=== PATIENT | male | born 1980 | race Caucasian/White ===

== ENCOUNTER 2019-01-08 14:11 | Emergency (ER) | payer BC, SELFPAY ==
[2019-01-08 14:17] VITALS: BP 126/86; PULSE 94; RESP 16; TEMP 36.4; O2SAT 96
--- NOTE | 2019-01-08 15:09 | DI.CT_ITS ---
EXAM: CT FACIAL WO CLINICAL HISTORY: lac to chin, r/o jaw fx/dislocation TECHNIQUE: WO COMPARISON: No exams were available for comparison FINDINGS: There is no evidence of a facial fracture. There is mucosal thickening seen in both maxillary sinuses. A large mucous retention cyst or polyp i n the left maxillary sinus. The remaining visualized paranasal sinuses are clear as are the mastoid air cells. The orbits and retro-orbital soft tissues are unremarkable. IMPRESSION: No evidence of a facial fracture. The findings were discussed with the Emergency Department on the date of the examination.
--- NOTE | 2019-01-08 15:10 | W.ED.GENAD ---
Discharge Plan Disposition Patient Disposition: HOME Condition: Stable Discharge Details Chief Complaint: Laceration Clinical Impression: Chin laceration, Contusion of jaw Primary Care Provider: None,None ED Provider: Erika Bailey Home Meds and New Rx's Prescriptions: No Action No Known Home Meds RF: 0 Discharge Instructions Instructions: Laceration (ED), Contusion in Adults (ED) Additional Instructions: Keep wound clean and dry. You can apply topical antibiotic ointment if you notice any signs of redness, swelling or pain. Wear a Band-Aid or bandage at night while sleeping or if risk of contamination. Otherwise keep the wound open to air to allow the edges to dry and heal. Return to the emergency department in 5 to 7 days for suture removal. Discharge Data Discharge Date/Time-TO BE ENTERED AT DEPARTURE: 01/08/19 17:30 Discharge Physician: Erika Bailey Medical Decision Making 1425 -- 38-year-old male presents with chin injury after slipped on snow and hit a steel bar with his chin prior to arrival. No LOC, vomiting, headache, blurry vision. There is a 2 cm laceration just below the left side of his chin. There is no active bleeding, obvious foreign body or deformity. Patient states he feels he is not able to line up his jaw correctly but states he thinks this may be due to swelling. He is able to open and close his jaw and is speaking in full sentences. There is no obvious oral or dental trauma noted. No C-spine tenderness. No focal deficits on exam. Unknown tetanus status. Will send for CT facial bones to rule out fracture and give a dose of ibuprofen. 1720 -- CT negative. 4 prolene 6-0 sutures palced. Pt has a reaction to pertussis so Td was given. He was advised on proper wound care and to return to the emergency department in 5-7 days for suture removal. Medical Records Medical records reviewed: Yes I reviewed the patient's medical records. HPI General Mode of arrival: ambulatory. Date/Time Provider Initiated Documentation: 01/08/19 14:26. Limitations to Documentation: no limitations. Information obtained by: patient. HPI Narrative: Patient is a 38-year-old male who presents with injury to his chin when he was hit with a steel bar when he slipped on snow. He has a laceration to his left chin and feels that his jaw is not lining up. He denies headache, LOC, blurry vision, vomiting, neck pain or any other injuries. Related Data Home Medications Medication Instructions Recorded Confirmed Unknown [No Known Home Meds] 01/08/19 01/08/19 Allergies Allergy/AdvReac Type Severity Reaction Status Date / Time pertusis vacine Allergy Uncoded 01/08/19 14:21 General Stated Complaint: Laceration LEYDI: 4 Review of Systems All systems reviewed & are unremarkable except as noted in HPI and below Constitutional Constitutional: Reports as per HPI, Denies chills and Denies fever(s) Eyes Eyes: Denies blurry vision ENT Ears, Nose, Mouth, and Throat: Denies dizziness, Denies sore throat and Denies throat swelling Cardiovascular Cardiovascular: Denies chest pain and Denies dyspnea Respiratory Respiratory: Denies cough and Denies dyspnea Gastrointestinal Gastrointestinal: Denies abdominal pain, Denies diarrhea and Denies vomiting Genitourinary Genitourinary: Denies hematuria and Denies dysuria Musculoskeletal Musculoskeletal: Denies back pain and Denies numbness Integumentary/Breasts Skin/Breast: Denies lesions and Denies rash Neurologic Neurologic: Denies dizziness, Denies focal weakness and Denies numbness Allergic/Immunologic Allergic/Immunologic: Denies throat swelling [facility] Medical History No significant past medical history (Acute) Surgical History History of hernia repair (Chronic) Social History Smoking/Tobacco Use Status: Never Alcohol Intake: current Alcohol Intake frequency: a few times a week Alcohol type: beer Substance use type: does not use Exam Const General: cooperative and healthy appearing Orientation: alert and awake [facility] Head: normal to inspection Ears: hearing grossly normal bilaterally, external ears normal and TM's normal bilaterally General nose exam: external nose normal Face and sinus: normal facial exam Face images: 1. 2cm straight laceration on the left side just below the chin. Mouth: oral mucosae normal Teeth and gingiva: dentition normal Throat: posterior oropharynx normal Other: Pain in right jaw and left chin with opening and closing jaw. There is no clicking, step-off, open wounds. No dental trauma noted. No other oral trauma noted. Eyes General: appearance normal, both eyes and all related structures Eyelids: eyelids normal Pupils: PERRL EOM: EOM intact bilaterally Neck Neck: normal visual inspection Lymphatic: no lymphadenopathy noted Chest Chest: normal inspection of the chest Resp Effort & Inspection: normal respiratory effort and able to speak in complete sentences Cardio Rate: regular rate Skin General skin exam: no rashes or lesions noted Neuro General: alert and awake Cognition: normal cognition Speech: speech normal Gait: normal gait Motor: muscle tone normal throughout Sensory Exam: no sensory deficits noted Extrem General: full ROM Psych Appearance: grossly normal Mental Status: mental status grossly normal Speech and Movement: speech and movement normal Affect: normal affect Thought Process: normal Course Vital Signs Vital signs: Vital Signs Temperature 97.5 F L 01/08/19 14:17 Pulse 94 H 01/08/19 14:17 Respiratory Rate 16 01/08/19 14:17 Blood Pressure 126/86 01/08/19 14:17 Pulse Oximetry 96 01/08/19 14:17 Temperature 97.5 F L 01/08/19 14:17 Temperature Source Skin 01/08/19 14:17 Pulse 94 H 01/08/19 14:17 Respiratory Rate 16 01/08/19 14:17 Respiratory Effort Non-Labored 01/08/19 14:17 Blood Pressure 126/86 01/08/19 14:17 Blood Pressure Position Sitting 01/08/19 14:17 Pulse Oximetry 96 01/08/19 14:17 Oxygen Delivery Method Room Air 01/08/19 14:17 Oxygen Flow Rate 0 01/08/19 14:17 Pain Level 6 01/08/19 14:17 Procedures Laceration Laceration 1: Site: face (Chin) Side (If applicable): left Size (cm): 2 Description: linear Depth: simple, single layer Local Anesthetic: Lidocaine 1% Amount of anesthesia used (mL): 10 Pre-repair: wound explored, irrigated extensively and deep structures intact Skin layer closed with: other (Prolene) Size (cm): 6-0 Number of sutures: 4 Technique: simple, interrupted
[2019-01-08 15:21] VITALS: BP 118/74; PULSE 76; O2SAT 98
[2019-01-08] MEDS: Ibuprofen 600 MG TAB PO (16:17)
[2019-01-08] MEDS: Tetanus & Diphtheria Tox,ADULT 0.5 ML VIAL IM (16:46)
[2019-01-08 17:22] VITALS: BP 124/88; PULSE 78; RESP 18; TEMP 36.8; O2SAT 98
== END 2019-01-08 17:30 | disposition home or self-care (01) ==
PROVIDERS: Emergency Provider Physician Assistant
DX: S01.81XA Laceration without foreign body of other part of head, initial encounter (principal); S00.83XA Contusion of other part of head, initial encounter; W00.0XXA Fall on same level due to ice and snow, initial encounter
CPT/HCPCS: 12011; 90471; 99284; 70486

== ENCOUNTER 2019-01-14 14:12 | Emergency (ER) | payer BC, SELFPAY ==
[2019-01-14 14:16] VITALS: BP 128/78; PULSE 81; RESP 18; TEMP 36.8; O2SAT 97
--- NOTE | 2019-01-14 14:30 | W.ED.GENAD ---
Discharge Plan Disposition Patient Disposition: HOME Condition: Good Discharge Details Chief Complaint: Recheck Clinical Impression: Encounter for removal of sutures Primary Care Provider: None,None ED Provider: Bertha Garrison Home Meds and New Rx's Prescriptions: No Action No Known Home Meds RF: 0 Discharge Instructions Instructions: Stitches Removal (ED) Additional Instructions: Wound appears to be healing well. Continue to monitor for signs of infection including redness, warmth, drainage, increased pain, fever/chills. If you develop these or other new/worsening symptoms please seek care urgently once again. Otherwise, her career development director will contact you regarding primary care follow-up. Medical Decision Making Patient is a 38-year-old male presents today with chief complaint of suture removal. He was seen here 6 days ago at which time #4 stitches were placed to the inferior aspect of his chin. Appears to be healing well no signs of infection. Wound edges are well approximated. Sutures removed by myself. Patient tolerated this well. Discussed signs of infection. He continues to have dyspnea and right-sided jaw pain. Patient did have imaging and no evidence of acute pathology noted on exam today with full range of motion, no clicking or grinding at the TMJ. Able to bite well. States that the pain can come in waves. Is requesting a primary care. I discussed the career development director help facilitate a primary care follow-up in the next 1 to 2 weeks. All his questions and concerns were addressed and is agreement this plan. HPI General Mode of arrival: ambulatory. Date/Time Provider Initiated Documentation: 01/14/19 14:30. Limitations to Documentation: no limitations. Information obtained by: patient and RN notes reviewed. History of Present Illness 38 year old M presents to the emergency department with the chief complaint of Suture removal, described as mild (denies pain), and is localized to the face. Patient reports no radiation. Patient started experiencing this day(s) and it has been constant. No relieving factors improve symptom(s), No exacerbating factors reported . Patient notes no other symptoms.. Patient did receive the following treatments prior to arrival, none Related Data Home Medications Medication Instructions Recorded Confirmed Unknown [No Known Home Meds] 01/08/19 01/14/19 Allergies Allergy/AdvReac Type Severity Reaction Status Date / Time pertusis vacine Allergy Uncoded 01/14/19 14:20 General Stated Complaint: Recheck LEYDI: 4 Review of Systems Constitutional Constitutional: Reports as per HPI, Denies chills, Denies fatigue, Denies fever(s), Denies headache(s) and Denies poor appetite Eyes Eyes: Denies change in vision and Denies irritation ENT Ears, Nose, Mouth, and Throat: Reports as per HPI, Reports dental pain, Denies dysphagia, Denies dizziness, Denies dry mouth, Denies ear discharge, Denies otalgia, Reports facial pain, Denies headache(s), Denies hoarseness, Denies lip swelling, Denies nasal congestion, Denies odynophagia and Denies sore throat Cardiovascular Cardiovascular: Reports as per HPI and Denies chest pain Respiratory Respiratory: Reports as per HPI and Denies cough Gastrointestinal Gastrointestinal: Reports as per HPI, Denies dysphagia, Denies nausea, Denies odynophagia and Denies vomiting Musculoskeletal Musculoskeletal: Reports as per HPI and Denies tingling Integumentary/Breasts Skin/Breast: Reports as per HPI, Denies erythema, Denies rash and Denies skin pain Neurologic Neurologic: Reports as per HPI, Denies dizziness, Denies headache(s) and Denies tingling Endocrine Endocrine: Denies fatigue Allergic/Immunologic Allergic/Immunologic: Denies lip swelling [facility] Medical History No significant past medical history (Acute) Surgical History History of hernia repair (Chronic) Social History Smoking/Tobacco Use Status: Former Tobacco Use Alcohol Intake: current Alcohol Intake frequency: a few times a week Alcohol type: beer Substance use type: does not use Do you feel safe at home: Yes Exam Const General: cooperative, healthy appearing, comfortable, no acute distress, well developed and well groomed Nutritional Appearance: average body habitus and well nourished Orientation: alert and awake [facility] Head: normal to inspection Ears: hearing grossly normal bilaterally General nose exam: external nose normal and nares normal Face and sinus: normal facial exam Face images: 1. well healing laceration with no surrounding erythema, warmth, drainage. No palpable fluctuance. Healing well. Eyes General: appearance normal, both eyes and all related structures Neck Neck: normal visual inspection, full ROM, no lymphadenopathy, supple and no anterior neck swelling Resp Effort & Inspection: normal respiratory effort, able to speak in complete sentences and no respiratory distress Skin Trauma: laceration (healing well) Neuro General: alert and awake Cognition: normal cognition Speech: speech normal Gait: normal gait Motor: muscle tone normal throughout Psych Appearance: grossly normal and well kempt Mental Status: mental status grossly normal Speech and Movement: speech and movement normal Course Vital Signs Vital signs: Vital Signs Temperature 36.8 C 01/14/19 14:16 Pulse 81 01/14/19 14:16 Respiratory Rate 18 01/14/19 14:16 Blood Pressure 128/78 01/14/19 14:16 Pulse Oximetry 97 01/14/19 14:16 Temperature 36.8 C 01/14/19 14:16 Temperature Source Skin 01/14/19 14:16 Pulse 81 01/14/19 14:16 Respiratory Rate 18 01/14/19 14:16 Respiratory Effort Non-Labored 01/14/19 14:18 Blood Pressure 128/78 01/14/19 14:16 Blood Pressure Position Sitting 01/14/19 14:16 Pulse Oximetry 97 01/14/19 14:16 Oxygen Delivery Method Room Air 01/14/19 14:16 Oxygen Flow Rate 0 01/14/19 14:16 Pain Level 0 01/14/19 14:16
== END 2019-01-14 14:48 | disposition home or self-care (01) ==
PROVIDERS: Emergency Provider Physician Assistant
DX: S01.03XD Puncture wound without foreign body of scalp, subsequent encounter (principal); X58.XXXD Exposure to other specified factors, subsequent encounter; Z48.02 Encounter for removal of sutures